=== PATIENT | female | born 1995 | race African-American/Black ===

== ENCOUNTER 2019-11-20 15:14 | Emergency (ER) | payer OTHER ==
[~2019-11-20] VITALS: Ht 167.6 cm; Wt 61.5 kg
[2019-11-20 16:21] LABS: INFLUENZA A AMPLIFICATION NEGATIVE (NEGATIVE); INFLUENZA B AMPLIFICATION NEGATIVE (NEGATIVE)
--- NOTE | 2019-11-20 17:46 | REP ---
CHEST, TWO VIEWS: There is no evidence of acute infiltrate. No pleural effusion is seen. The heart is normal in size. The mediastinal silhouette is unremarkable. The visualized osseous structures are intact. IMPRESSION: No acute pulmonary disease. Electronically Signed by Demetrius Franklin MD 11/20/2019 08:23 P
[2019-11-20] MEDS ORDERED: BENZ200C70 PO (17:56)
[2019-11-20 18:12] VITALS: BP 112/57
== END 2019-11-20 18:15 | disposition home or self-care (01) ==
LOC: M ED 15:14
DX: J06.9 Acute upper respiratory infection, unspecified (principal)

== ENCOUNTER 2020-10-03 11:17 | Emergency (ER) | payer OTHER ==
[~2020-10-03] VITALS: Ht 170.2 cm; Wt 57.8 kg
[~2020-10-03 11:17] MED LIST: BENZ200C70 PO
[2020-10-03 11:54] LABS: BASO % 0.2 % (0.0-1.0); EOS # 0.1 10^3/uL (0.0-0.5); EOS % 1.4 % (0.0-3.0); HEMATOCRIT 45.5 % (36.0-47.0); HEMOGLOBIN 15.4 g/dl (12.0-15.5); LYMPH # 1.7 10^3/uL (1.5-5.0); LYMPH % 41.5 % (24.0-44.0); MEAN CORPUSCULAR HEMOGLOBIN 31.6 pg (27.0-33.0); MEAN CORPUSCULAR HGB CONC 33.8 g/dl (32.0-36.5); MEAN CORPUSCULAR VOLUME 93.2 fl (80.0-96.0); MONO # 0.2 10^3/uL (0.0-0.8); MONO % 5.1 % (0.0-5.0); NEUTROPHILS # 2.1 10^3/uL (1.5-8.5); NEUTROPHILS % 51.6 % (36.0-66.0); PLATELET COUNT, AUTOMATED 354 10^3/uL (150-450); RED BLOOD COUNT 4.88 10^6/uL (4.00-5.40); WHITE BLOOD COUNT 4.1 10^3/uL (4.0-10.0)
[2020-10-03 12:20] LABS: BLOOD UREA NITROGEN 9 MG/DL (7-18); CALCIUM LEVEL 9.7 MG/DL (8.5-10.1); CARBON DIOXIDE LEVEL 30 MEQ/L (21-32); CHLORIDE LEVEL 108 MEQ/L (98-107); CREATININE FOR GFR 0.79 MG/DL (0.55-1.30); GLOMERULAR FILTRATION RATE > 60.0 (>60); GLUCOSE, FASTING 99 MG/DL (70-100); POTASSIUM SERUM 3.9 MEQ/L (3.5-5.1); SODIUM LEVEL 139 MEQ/L (136-145)
[2020-10-03 12:24] LABS: INR 1.01; PARTIAL THROMBOPLASTIN TIME 32.8 SECONDS (24.2-38.5); PROTHROMBIN TIME 13.5 SECONDS (12.5-14.3)
--- NOTE | 2020-10-03 13:02 | REP ---
INDICATION: irregular vaginal bleeding COMPARISON: None. TECHNIQUE: Transabdominal pelvic ultrasound followed by transvaginal examination for better evaluation of the endometrium and adnexa with color Doppler evaluation of the ovaries. FINDINGS: Bladder is collapsed and measures 5.8 x 3.0 x 1.3 cm Normal retroverted uterus measures 8.4 x 4.0 x 6.7 cm. The endometrial complex measures 8.0 mm thickness. Incidental small nabothian cysts in the cervical region measuring up to 3 mm Bilateral ovaries are normal in appearance and vascularity without evidence for torsion. Right ovary measures 3.1 x 2.3 x 2.5 cm; R I = 0.64. Left ovary measures 3.1 x 1.2 x 2.2 cm; R I = 0.67. 2.5 x 1.5 x 1.9 cm simple right paraovarian cyst noted. Small amount of free fluid in the pelvis likely physiologic. IMPRESSION: 2.5 cm right para ovarian cyst. Otherwise normal pelvic ultrasound. <Electronically signed by Mulugeta Peter > 10/03/20 [id number]
[2020-10-03 13:52] LABS: CHLAMYDIA DNA AMPLIFICATION POSITIVE (NEGATIVE); GC DNA AMPLIFICATION NEGATIVE (NEGATIVE)
[2020-10-03 14:07] VITALS: BP 97/64
[2020-10-03] MEDS ORDERED: FLAG500T PO (14:33)
[2020-10-03] MEDS ORDERED: AZITHROMYCIN 250MG TABLET PO ONE (14:45)
== END 2020-10-03 14:47 | disposition home or self-care (01) ==
LOC: M ED 11:17
DX: A56.09 Other chlamydial infection of lower genitourinary tract (principal); N76.0 Acute vaginitis; N83.201 Unspecified ovarian cyst, right side

== ENCOUNTER 2020-11-27 14:42 | Emergency (ER) | payer OTHER ==
[~2020-11-27] VITALS: Ht 170.2 cm; Wt 59.8 kg
[~2020-11-27 14:42] MED LIST changes: +FLAG500T PO
[2020-11-27] MEDS ORDERED: ONDANSETRON 4MG/2ML VIAL IV ONE (16:20)
[2020-11-27] MEDS ORDERED: NS 1,000 ML IV ONE (16:20)
[2020-11-27 16:26] LABS: BASO % 0.3 % (0.0-1.0); EOS % 0.1 % (0.0-3.0); HEMATOCRIT 43.1 % (36.0-47.0); HEMOGLOBIN 14.6 g/dl (12.0-15.5); LYMPH # 1.2 10^3/uL (1.5-5.0); LYMPH % 16.5 % (24.0-44.0); MEAN CORPUSCULAR HEMOGLOBIN 31.5 pg (27.0-33.0); MEAN CORPUSCULAR HGB CONC 33.9 g/dl (32.0-36.5); MEAN CORPUSCULAR VOLUME 93.1 fl (80.0-96.0); MONO # 0.4 10^3/uL (0.0-0.8); NEUTROPHILS # 5.8 10^3/uL (1.5-8.5); NEUTROPHILS % 77.7 % (36.0-66.0); PLATELET COUNT, AUTOMATED 403 10^3/uL (150-450); RED BLOOD COUNT 4.63 10^6/uL (4.00-5.40); WHITE BLOOD COUNT 7.4 10^3/uL (4.0-10.0)
[2020-11-27 16:57] LABS: ALBUMIN 4.2 GM/DL (3.2-5.2); BILIRUBIN,DIRECT 0.2 MG/DL (0.0-0.2); BILIRUBIN,TOTAL 1.1 MG/DL (0.2-1.0); TOTAL PROTEIN 7.9 GM/DL (6.4-8.2)
[2020-11-27] MEDS ORDERED: ONDA4TAB6 PO (17:48)
[2020-11-27 18:10] VITALS: BP 108/71
== END 2020-11-27 18:17 | disposition home or self-care (01) ==
LOC: M ED 14:42
DX: O21.9 Vomiting of pregnancy, unspecified (principal); Z3A.00 Weeks of gestation of pregnancy not specified
CPT/HCPCS: 36415; 80047; 80076; 81001; 83690; 84702; 85025; 87086; 96361; 96374; 99284; J2405

== ENCOUNTER 2021-06-25 16:55 | Inpatient (IN) | payer OTHER ==
[~2021-06-25] VITALS: Ht 170.2 cm; Wt 67.3 kg
[2021-06-25] VITALS (9 sets, daily range): BP systolic 93–122; BP diastolic 54–72
[~2021-06-25 16:55] MED LIST changes: +ONDA4TAB6 PO
[2021-06-25] MEDS ORDERED: STUACAP PO (17:10)
[2021-06-25] MEDS ORDERED: HOME MED LIST COMPLETE! XX SCH (17:40)
[2021-06-25] MEDS: ONDANSETRON 4MG/2ML VIAL IV SCH (18:00)
[2021-06-25] MEDS ORDERED: LACTATED RINGER'S 1000 ML IV STA (18:52)
[2021-06-25] MEDS ORDERED: OXYTOCIN DRIP 30 UNITS in IV 1 EA IV PRN (18:55)
[2021-06-25] MEDS ORDERED: LIDOCAINE 1% MDV 20ML VIAL INFIL PRN (18:55)
--- NOTE | 2021-06-25 19:01 | HPEPDOC ---
Obstetrical History & Physical General Date of Admission Jun 25, 2021 at 18:50 History of Present Illness Ms. Turpin is a 25yo at 39+3 who presents in labor. She denied VB, LOF, d ecreased FM. She otherwise denied a 12 point ROS. 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 chlamydia in SEP 2020 2. varicella equivocal 3. echogenic focus Surgical History: [place] teeth Family History Significant Family History: No pertinent family hx Social History Marital Status: Family situation: Spouse/partner home Psychosocial History: No pertinent psych hx * Smoker: non-smoker Alcohol: Denies Drugs: denies Imunizations Tdap status: declined Influenza Status: needs Allergies Coded Allergies: No Known Allergies (Unverified , 11/20/19) Medications Miscellaneous Medications Pnv No.63/Iron,Carb/Folic/Dha (Will One Capsule) 1 Each Capsule, 1 CAP PO Physical Examination Physical Examination GENERAL: Alert and oriented times three. BREAST: . ABDOMEN: Gravid and non-tender to touch. FETUS: Is vertex (VTX) by sterile vaginal examination (SVE), fetus is vertex (VTX) by US HEART RATE: Regular rate and rhythm. LUNGS: Clear to auscultation (CTA). EXTREMITIES: No edema. No clonus. Vital Signs/I&O Vital Signs Date Time Temp Pulse Resp B/P (MAP) Pulse Ox O2 Delivery O2 Flow Rate FiO2 06/25/21 17:45 64 93/54 (67) 06/25/21 17:10 97.9 16 Room Air Pertinent Laboratoy Data Blood Type: O+ RBC Antibody Screen: Negative HIV: Negative Hepatitis B: Negative Rapid Plasma Reagin: Nonreactive Rubella: Immune Varicella: Nonreactive Chlamydia/Gonorrhea: Positive (KT negative) Group B Streptococcus: Negative Quad Screen Test: Negative Cystic Fibrosis: Negative Glucose Tolerance Test: 105 Anatomy Ultrasound Placenta Location: Posterior (echogenic foci) Normal Anatomy: Yes Vaginal Examination Dilation: 5 cm Effacement: 90% Station: -2 Cervical Consistency: Soft Cervical Position: Lateral Presentation: Cephalic presentation (by US) Assessment Variability: Moderate Accelerations: Positive Decelerations: Late Tocometer Contractions: Yes Frequency: regular Multi-drug resistant Organism: No history of MDRO Assessment/Plan Assessment Ms. Turpin is a 25yo at 39+3 who presents in labor. VS normal. CAT II NST for late decel, overall reassuring. 1. chlamydia in SEP 2020 2. varicella equivocal 3. echogenic focus Rh pos, GBS neg, ceph by US, EFW 3400, placenta posterior, PP 6#8 Plan Admit and orient. 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 Diet: clears Group B Streptococcus (GBS) [negative]. Labs and intravenous (IV) per unit protocol. Counseled on Pitocin and induction of labor (IOL). Lactated Ringers (LR): PRN Anticipate [normal spontaneous delivery ()]. C-S as appropriate. UBALDO PRADO DO Jun 25, 2021 19:01
[2021-06-25 19:20] LABS: HEMATOCRIT 40.5 % (36.0-47.0); HEMOGLOBIN 13.9 g/dl (12.0-15.5); MEAN CORPUSCULAR HEMOGLOBIN 32.3 pg (27.0-33.0); MEAN CORPUSCULAR HGB CONC 34.3 g/dl (32.0-36.5); PLATELET COUNT, AUTOMATED 268 10^3/uL (150-450); RED BLOOD COUNT 4.31 10^6/uL (4.00-5.40); WHITE BLOOD COUNT 9.7 10^3/uL (4.0-10.0)
[2021-06-25] MEDS ORDERED: FENTANYL 2MCG/ML ROPIVACAINE 0.2% IN 0.9% NACL 100ML IVBAG As Ordered ONE (19:56)
--- NOTE | 2021-06-25 20:09 | IPNPDOC ---
Obstetrical Progress Note Date of Service Jun 25, 2021 Objective Vital Signs Date Time Temp Pulse Resp B/P (MAP) Pulse Ox O2 Delivery O2 Flow Rate FiO2 06/25/21 17:45 64 93/54 (67) 06/25/21 17:10 97.9 16 Room Air Assessment and Plan Additional Comments To room for assessment of increased pressure and patient vomiting. SVE 7/90/0, BBOW. NST CAT I reactive. Contractions regular. Patient wants an epidural and anesthesia has been notified, her bolus was started on admission. UBALDO PRADO DO Jun 25, 2021 20:09
[2021-06-25] MEDS ORDERED: OXYTOCIN 30 UNITS IN 0.9% NaCl 500ML IV BAG (J2590) As Ordered ONE (20:24)
[2021-06-25] MEDS ORDERED: EPIDURAL/PCA KEYS XX PRN (20:40)
[2021-06-25] MEDS ORDERED: FENTANYL/ROPIVACAINE/NACL BAG 100 ML EPIDURAL SCH (20:40)
[2021-06-25] MEDS ORDERED: diphenhydrAMINE 50MG/ML VIAL (J1200) IV PRN (20:40)
[2021-06-25] MEDS ORDERED: EPIDURAL COMMENT XX SCH (20:40)
[2021-06-25] MEDS ORDERED: REFRIGERATOR IV KEYS XX PRN (20:40)
[2021-06-25] MEDS ORDERED: LACTATED RINGER'S 1000 ML IV PRN (20:40)
[2021-06-25] MEDS ORDERED: ePHEDrine SULFATE 25 MG/5 ML(5MG/ML) SYRINGE IV PRN (20:40)
[2021-06-25] MEDS ORDERED: NALOXONE INJ 0.4MG/1ML VIAL (J2310 PER 1MG) IV PRN (20:40)
[2021-06-25] MEDS ORDERED: ONDANSETRON 4MG/2ML VIAL IV PRN (20:40)
[2021-06-25 21:05] LABS: CORD GAS ABE V -3.3; CORD GAS HCO3 V 20.9 MEQ/L; CORD GAS PCO2 V 35.3 mmHg; CORD GAS PH V 7.39 UNITS; CORD GAS PO2 V 37.9 mmHg; CORD GAS SBC V 21.4 MEQ/L
--- NOTE | 2021-06-25 21:11 | DNPDOC ---
[facility] Delivery Note Delivery Note DATE OF DELIVERY: PREDELIVERY DIAGNOSIS: 39+3 weeks gestation, spontaneous labor 1. chlamydia in SEP 2020 2. varicella equivocal 3. echogenic focus POST DELIVERY DIAGNOSIS: same + first degree perineal laceration PROCEDURE: Spontaneous vaginal delivery, repair of perineal laceration TAX ASSISTANT: Dr. Tc Prado DO ANESTHESIA: lidocaine subcutaneous ESTIMATED BLOOD LOSS: 100 mL. FINDINGS: 2710g , Score 9/9, nuchal cord times 0. DELIVERY SUMMARY: Ms. Turpin is a 25yo at 39+3 who presented in labor. She spontaneously ruptured and progressed immediately to C/C/+3. With good maternal effort she delivered the head followed by the body. The baby had spontaneous movement and cry. Cord clamping was delayed 60s and was then cut by the FOB. Cord gasses and blood were obtained. The placenta delivered with gentle downward traction and was in-tact. The uterus was firm. A first degree laceration was repaired with 2- 0 vicryl in the usual fashion. The was a slight uptake in bleeding and the bladder was drained, 300cc. The uterus was then firm and bleeding scant. The sponge, lap, and needle counts were correct. There were no complications. TC PRADO DO Jun 25, 2021 21:11
[2021-06-26] MEDS: ONDANSETRON 4MG/2ML VIAL IV SCH
[2021-06-26 05:50] VITALS: BP 108/56
[2021-06-26] MEDS ORDERED: medroxyPROGESTERone ACET IM SUSP 150 MG/ML VIAL (J1050) IM ONE (07:00)
--- NOTE | 2021-06-26 07:00 | IPNPDOC ---
Progress Note Date of Service: Jun 26, 2021 Day#: 1 Progress Note SUBJECT: Ms. Turpin is a 25yo PPD1 s/p , 2710g , Score 9/9, 1MLL. She has been ambulating, voiding spontaneously without issue and tolerating regular diet. Breast feeding without issue. Reports lochia is less than a normal period]. Patient is ambulating well. [Reports some cramping with . Denies any pain. Voiding and passing flatus without difficulty]. OBJECTIVE: VITAL SIGNS: Within normal limits, afebrile. Alert and oriented times three. No increased wob Heart rate: non tachy Abdomen: Fundus firm at U-2. Soft, NTTP. [Minimal] lochia. ASSESSMENT: Ms. Turpin is a 25yo PPD1 s/p , 2710g infant, Score 9/9, 1MLL. Vitals within normal limits, afebrile, hemodynamically stable with no evidence of infection. PLAN: 1. Discharge to home likely tomorrow. 2. Tylenol and Motrin for pain. 3. Encourage breast feeding and ambulation. 4. Depo provera ordered for contraception 5. Routine PP visit in 6 weeks in clinic. 6. Discussed return precautions at length. 7. Encouraged varicella vaccination. VS, I&O, 24H, Fishbone Vital Signs/I&O Vital Signs Date Time Temp Pulse Resp B/P (MAP) Pulse Ox O2 Delivery O2 Flow Rate FiO2 06/26/21 05:50 98.4 60 16 108/56 (73) 96 Room Air I&O- Last 24 Hours up to 6 AM 06/26/21 06:00 Intake Total 1700 ml Output Total 400 ml Balance 1300 ml Laboratory Data 24H LABS Laboratory Tests 2 06/25/21 18:52: Syphilis Serology NONREACTIVE 06/25/21 19:08: Serology Scanned Report Hepatitis B Testing 06/25/21 19:10: Nucleated Red Blood Cells % (auto) 0.0, Cord Arterial Blood pH , Cord Arterial Blood PCO2 , Cord Arterial Blood PO2 , Cord Arterial Blood HCO3 , Cord Arterial Blood Total CO2 , Cord Arterial Blood Base Excess , Cord Arterial Base Excess (Standard , Cord Arterial Bld Oxygen Saturation , Cord Venous Blood pH 7.390, Cord Venous Blood PCO2 35.3, Cord Venous Blood PO2 37.9, Cord Venous Blood HCO3 20.9, Cord Venous Blood Total CO2 22.0, Cord Venous Base Excess (Actual) -3.3, Cord Venous Base Excess (Standard) 21.4, Cord Venous Blood Oxygen Saturation 83.0 CBC/BMP Laboratory Tests 06/25/21 19:10 UBALDO PRADO DO Jun 26, 2021 07:00
[2021-06-26] MEDS ORDERED: DOCUSATE SODIUM 100MG CAPSULE PO PRN (08:45)
[2021-06-26] MEDS ORDERED: IBUPROFEN 800 MG TAB PO PRN (08:45)
[2021-06-26] MEDS ORDERED: RHOGAM 300 MCG (1500 IU) INJ (J2790) IM SCH (08:45)
[2021-06-26] MEDS ORDERED: DIBUCAINE 1% OINTMENT 30GM TOP PRN (08:45)
[2021-06-26] MEDS: PRENATAL VITAMINS CHEWABLE TABLET PO SCH (09:09)
[2021-06-26] MEDS: ACETAMINOPHEN 500 MG TAB PO PRN ×3 (09:09→22:56)
[2021-06-26 18:05] VITALS: BP 106/60
[2021-06-27 06:03] VITALS: BP 115/57
[2021-06-27] MEDS: PRENATAL VITAMINS CHEWABLE TABLET PO SCH (08:19)
--- NOTE | 2021-06-27 09:29 | IPNPDOC ---
Progress Note Date of Service: Jun 27, 2021 Day#: 2 Progress Note Ms. Turpin is a 25yo on day 2 after at 39+3wks gestation. S: States she is doing well. Reports pain well controlled. She is ambulating well, tolerating a regular diet, urinating without difficulty, reports normal bowel activities and has no breast or leg pain. Formula feeding. Lochia is diminishing. Reports moods are stable, denies history of depression. Ambulating well, denies dizziness, lightheadedness. O: VS: Vital Signs Label Value Date Time Patient Temperature 98.1 degrees F 06/27/21602 Temperature Source Temporal 06/27/21602 Pulse 63 06/27/21602 Respiratory Rate 17 bpm 06/27/21602 Blood Pressure Assessment 115/57 (76) 06/27/21602 Source Automatic Cuff (NIBP) General: Alert. Well-appearing, in no acute distress. PSYCH: Well groomed. Appropriate affect, normal mood. Conversed easily. Neuro: Oriented to time, place, and person. RESP: Lungs clear to auscultation bilaterally without wheezes, rales or rhonchi. Unlabored breathing. CV: Normal RRR, no murmur, c/w normal . No edema to bilateral upper and lower extremities. Negative calf tenderness. Breast: Soft. Wearing sports bra. No erythema or tenderness. Intact nipples. ABD: Soft, non-tender. BS normal x4 quad. Fundus: Firm U-2, Fundus non-tender. MSK: legs without calf tenderness or edema bilaterally SKIN: Dry, intact. A/P 25yo on day 2 after at 39+3wks gestation. O positive/GBS negative/RI Varicella Equivocal. Recommended vaccine after discharge. Normal progression. Formula Feeding: Encouraged tight support bra and no stimulation to breasts. VSS Undecided on control after discharge. Encouraged abstinence until PP visit and to think about what she desires. Reviewed options with patient. Discharge today when infant ready, to follow up in [facility] in 6-8wks for PP visit. Discharge teaching completed with patient, see discharge summary. Discharge medications previously picked up from pharmacy. No new discharge medications ordered. VS, I&O, 24H, Fishbone Vital Signs/I&O Vital Signs Date Time Temp Pulse Resp B/P (MAP) Pulse Ox O2 Delivery O2 Flow Rate FiO2 06/27/21 06:03 98.1 63 17 115/57 (76) Room Air 06/26/21 18:05 100 SILVANA CLIFFORD CNM Jun 27, 2021 09:28
--- NOTE | 2021-06-27 09:34 | DS.PDOC ---
Discharge Summary General Date of Admission Jun 25, 2021 at 18:50 Date of Discharge Jun 27, 2021 Discharge Summary Date of Admission: 06/25/2021 Admission Diagnosis: Labor at Full Term Delivery Date: 06/25/2021 @ 2037 Discharge Diagnosis: Normal spontaneous vaginal delivery, term up to 40 weeks gestation Miranda gestation, live First Degree Perineal Laceration, Repaired Procedures: External Monitoring Vaginal Delivery Repair of Laceration Condition on Discharge: Stable Discharged to: Home Hospital Course: Ms. Turpin is a 25 year old G 2 now P 2 who delivered a viable infant female at 39+3 weeks gestation via spontaneous vaginal delivery after arriving to unit in spontaneous labor. A first degree laceration was repaired following delivery. Ms. Turpin has had an uncomplicated course. She has remained afebrile and normotensive with diminishing lochia throughout her stay. She is ambulating well, tolerating a regular diet, urinating without difficulty, reports normal bowel activities and has no breast or leg pain. She is stable and ready for discharge. Day of discharge physical exam documented in progress note. feeding at discharge is formula. Undecided control plan. To follow up in the [facility] in 6-8 weeks. Discharge management time Spent: <30 minutes I saw and evaluated the patient, and completed the documentation personally. -MAJ Carley Clifford CNM Vital Signs/I&Os Vital Signs Date Time Temp Pulse Resp B/P (MAP) Pulse Ox O2 Delivery O2 Flow Rate FiO2 06/27/21 06:03 98.1 63 17 115/57 (76) Room Air 06/26/21 18:05 100 Discharge Medications Miscellaneous Medications Pnv No.63/Iron,Carb/Folic/Dha (Will One Capsule) 1 Each Capsule, 1 CAP PO, (Reported) Allergies Coded Allergies: No Known Allergies (Unverified , 11/20/19) CARLEY CLIFFORD CNM Jun 27, 2021 09:31
== END 2021-06-27 11:10 | disposition home or self-care (01) | DRG 807 ==
LOC: M LDO 16:55 → M LDI 18:50 → M OBS 23:10
PROVIDERS: ADMIT Obstetrics & Gynecology; ATTEND Obstetrics & Gynecology
PROC: 10E0XZZ Delivery of Products of Conception, External Approach (ICD-10-PCS; principal; 2021-06-25)
PROC: 0HQ9XZZ Repair Perineum Skin, External Approach (ICD-10-PCS; 2021-06-25)
DX: O70.0 First degree perineal laceration during delivery (principal); Z37.0 Single live birth; Z3A.39 39 weeks gestation of pregnancy